=== PATIENT | male | born 1960 | race Caucasian/White ===

== ENCOUNTER 2020-12-05 19:36 | Emergency (ER) | payer OTHER ==
[~2020-12-05] VITALS: Ht 177.8 cm; Wt 98.8 kg
[~2020-12-05 19:36] MED LIST: AMOX1TAB64 PO; OXYC1TAB14 PO
[2020-12-05 19:44] VITALS: BP 132/82
[2020-12-05] MEDS ORDERED: CEFAZOLIN 1,000 MG ONE (20:29)
[2020-12-05] MEDS ORDERED: CEFAZOLIN 1,000 MG IM ONE (20:30)
[2020-12-05] MEDS ORDERED: BUPIVACAINE 0.25% INFIL ONE (20:30)
[2020-12-05] MEDS ORDERED: LIDOCAINE 1%, 10ML INFIL ONE (20:30)
[2020-12-05] MEDS ORDERED: DIPH,PERTUSS(ACELL),TET VAC/PF 0.5 ML IM-VACC ONE ×2 (20:30)
[2020-12-05] MEDS ORDERED: LIDOCAINE-MPF 1%, 5ML ONE (20:34)
[2020-12-05] MEDS ORDERED: BUPIVACAINE 0.25% ONE (20:34)
--- NOTE | 2020-12-05 20:46 | NUR ---
MEDS ADMIN PER AUG. EDPA AT BEDSIDE TO ADMIN NUMBING MEDS. PT TOLLERATED WELL. BLEEDING CONTROLLED AT THIS TIME.
[2020-12-05] MEDS ORDERED: NEOSPORIN OINT. PKT 1 PACKET ONE (20:50)
--- NOTE | 2020-12-05 21:24 | NUR ---
WOUND CLEANED AND DRESSED PER ERPA INSTRUCTION BY [employer] REP. PT TO F/U WITH ORTHO TOMORROW.
== END 2020-12-05 21:26 | disposition home or self-care (01) ==
LOC: ED 20:23
DX: S62.635B Displaced fracture of distal phalanx of left ring finger, initial encounter for open fracture (principal); X58.XXXA Exposure to other specified factors, initial encounter; Y93.89 Activity, other specified; Y92.096 Garden or yard of other non-institutional residence as the place of occurrence of the external cause; Y99.8 Other external cause status
CPT/HCPCS: 64450; 73130; 90471; 90715; 96372; 99284; J0690